=== PATIENT | female | born 1975 | race African-American/Black ===

== ENCOUNTER 2021-08-29 12:50 | Inpatient (IN) | payer OTHER ==
[~2021-08-29] VITALS: Ht 160 cm; Wt 59.1 kg
[2021-08-29] MEDS ORDERED: SODIUM CHLORIDE 0.9% 1,000 ML IV ONE (13:30)
[2021-08-29] MEDS ORDERED: LEVETIRACETAM 1000MG PREMIX 100 ML IV ONE (13:30)
[2021-08-29 14:00] LABS: BASOPHILS % 0.1 % (0.0-2.0); EOSINOPHILS % 0.4 % (0.0-5.0); HEMATOCRIT. 30.1 % (36.0-48.0); HEMOGLOBIN. 10.3 g/dL (12.0-16.0); LYMPHOCYTES % 10.8 % (20.0-50.0); MEAN CORPUSCULAR HEMOGLOBIN 27.7 pg (28.0-32.0); MEAN CORPUSCULAR VOLUME 80.9 fL (81.0-99.0); MEAN PLATELET VOLUME 5.9 fl (7.4-10.4); MONOCYTES % 3.6 % (2.0-8.0); NEUTROPHILS % 85.1 % (40.0-76.0); PLATELET 363 x1000/uL (130-400); RED BLOOD CELL COUNT 3.72 mill/uL (4.2-5.4); RED CELL DISTRIBUTION WIDTH 12.1 % (11.6-14.6)
[2021-08-29] MEDS ORDERED: MIDAZOLAM HCL 2 MG/2 ML VIAL IV ONE (14:00)
[2021-08-29 14:07] LABS: CHLORIDE 83 mEq/L (98-107)
[2021-08-29 14:11] LABS: ETHANOL BLOOD < 10 mg/dL
[2021-08-29] MEDS ORDERED: SODIUM CHLORIDE 3% 500ML IV SOLN IV ONE (14:30)
[2021-08-29] MEDS ORDERED: SODIUM CHLORIDE 3% 150 ML IV NR (14:45)
[2021-08-29 17:54] LABS: CHLORIDE 85 mEq/L (98-107)
[2021-08-29] MEDS ORDERED: HYDROCODONE/ACETAMINOPHEN 5/325MG TABLET PO PRN (19:00)
[2021-08-29] MEDS ORDERED: ACETAMINOPHEN 325MG TABLET PO PRN ×2 (19:00)
[2021-08-29] MEDS ORDERED: ONDANSETRON HCL 4MG/2ML INJ IV PRN (19:00)
[2021-08-29] MEDS ORDERED: NALOXONE HCL 0.4MG/ML VIAL IV PRN (19:15)
[2021-08-29] MEDS: ENOXAPARIN 40MG/0.4ML SYR SUBCUT SCH (20:05)
[2021-08-29 20:48] LABS: CHLORIDE 87 mEq/L (98-107)
[2021-08-29 20:49] LABS: CLARITY URINE CLEAR (CLEAR); COLOR URINE YELLOW (YELLOW); KETONES URINE 2+ (NEGATIVE); LEUKOCYTE ESTERASE URINE NEGATIVE (NEGATIVE); NITRITE URINE NEGATIVE (NEGATIVE); OCCULT BLOOD URINE NEGATIVE (NEGATIVE); PROTEIN URINE NEGATIVE (NEGATIVE); SPECIFIC GRAVITY URINE 1.009 (1.005-1.030); UROBILINOGEN URINE 0.2 E.U./dL (0.2-1.0)
[2021-08-29 21:32] LABS: *AMPHETAMINES SCREEN URINE NEGATIVE (NEGATIVE)
[2021-08-29 21:33] LABS: *BARBITURATES SCREEN URINE NEGATIVE (NEGATIVE); *COCAINE SCREEN URINE NEGATIVE (NEGATIVE); METHADONE URINE SCREEN NEGATIVE (NEGATIVE); OPIATES URINE SCREEN NEGATIVE (NEGATIVE); PHENCYCLIDINE URINE SCREEN NEGATIVE (NEGATIVE)
[2021-08-29 21:35] LABS: CANNABINOID URINE SCREEN NEGATIVE (NEGATIVE)
[2021-08-29 21:36] LABS: *BENZODIAZEPINES SCREEN URINE PRESUMTIVE POSITIVE (NEGATIVE)
[2021-08-30] VITALS (13 sets, daily range): BP systolic 87–134; BP diastolic 55–81
[2021-08-30 00:59] LABS: CHLORIDE 85 mEq/L (98-107)
[2021-08-30 02:20] LABS: CHLORIDE 85 mEq/L (98-107)
[2021-08-30] MEDS: LORAZEPAM 2MG/ML CPJ IV PRN (03:44)
[2021-08-30 05:34] LABS: CHLORIDE 84 mEq/L (98-107)
[2021-08-30 05:41] LABS: PHOSPHORUS 2.3 mg/dL (2.5-4.9)
[2021-08-30 06:12] LABS: BASOPHILS % 0.1 % (0.0-2.0); HEMATOCRIT. 32.1 % (36.0-48.0); HEMOGLOBIN. 10.9 g/dL (12.0-16.0); LYMPHOCYTES % 7.9 % (20.0-50.0); MEAN CORPUSCULAR HEMOGLOBIN 27.8 pg (28.0-32.0); MEAN CORPUSCULAR VOLUME 81.7 fL (81.0-99.0); MEAN PLATELET VOLUME 6.7 fl (7.4-10.4); MONOCYTES % 5.2 % (2.0-8.0); NEUTROPHILS % 86.8 % (40.0-76.0); PLATELET 448 x1000/uL (130-400); RED BLOOD CELL COUNT 3.93 mill/uL (4.2-5.4); RED CELL DISTRIBUTION WIDTH 12.4 % (11.6-14.6)
[2021-08-30] MEDS ORDERED: SODIUM CHL 0.9% + KCL 20MEQ/L 1,000 ML IV SCH (07:30)
[2021-08-30 09:34] LABS: CHLORIDE 89 mEq/L (98-107)
[2021-08-30 12:59] LABS: CHLORIDE 93 mEq/L (98-107)
[2021-08-30] MEDS ORDERED: POTASSIUM PHOS,M-BASIC-D-BASIC 20 MMOL in DEXT 5% WATER 243.3333 ML IV NR (15:30)
[2021-08-30] MEDS ORDERED: MAGNESIUM 2 G PREMIX 50 ML IV NR (16:00)
[2021-08-30 17:07] LABS: CHLORIDE 93 mEq/L (98-107)
[2021-08-30] MEDS ORDERED: KCL 20MEQ/100ML PREMIX 100 ML IV NR (21:00)
[2021-08-30] MEDS ORDERED: FOLIC ACID 1 MG, THIAMINE HCL 100 MG, MVI, ADULT NO.1 10 ML in DEXTROSE 5% WATER 1,000 ML IV NR (21:00)
[2021-08-30] MEDS: ENOXAPARIN 40MG/0.4ML SYR SUBCUT SCH (21:40)
[2021-08-30] MEDS ORDERED: DIPHENHYDRAMINE 25MG CAPSULE PO NR (22:00)
[2021-08-30 23:58] LABS: CHLORIDE 100 mEq/L (98-107)
[2021-08-31] VITALS (9 sets, daily range): BP systolic 87–119; BP diastolic 54–75
[2021-08-31] MEDS ORDERED: DEXT 5%/0.45% NACL 1000ML 1,000 ML IV SCH (00:30)
[2021-08-31 06:28] LABS: BASOPHILS % 0.5 % (0.0-2.0); EOSINOPHILS % 0.2 % (0.0-5.0); HEMATOCRIT. 32.9 % (36.0-48.0); HEMOGLOBIN. 11.3 g/dL (12.0-16.0); LYMPHOCYTES % 17.2 % (20.0-50.0); MEAN CORPUSCULAR HEMOGLOBIN 27.9 pg (28.0-32.0); MEAN CORPUSCULAR VOLUME 81.2 fL (81.0-99.0); MEAN PLATELET VOLUME 6.8 fl (7.4-10.4); NEUTROPHILS % 73.1 % (40.0-76.0); PLATELET 437 x1000/uL (130-400); RED BLOOD CELL COUNT 4.05 mill/uL (4.2-5.4)
[2021-08-31 06:48] LABS: CHLORIDE 99 mEq/L (98-107)
[2021-08-31 07:00] LABS: PHOSPHORUS 2.1 mg/dL (2.5-4.9)
[2021-08-31] MEDS ORDERED: KCL 20MEQ/100ML PREMIX 100 ML IV SCH ×2 (09:00→11:00)
[2021-08-31 09:47] LABS: FOLIC ACID (FOLATE) SERUM >20 ng/mL ng/mL (>5.38)
[2021-08-31 09:58] LABS: VITAMIN B12 SERUM 1004 pg/mL (211-911)
[2021-08-31] MEDS: LORAZEPAM 2MG/ML CPJ IV PRN (10:03)
[2021-08-31] MEDS ORDERED: POTASSIUM PHOS,M-BASIC-D-BASIC 20 MMOL in DEXT 5% WATER 243.3333 ML IV SCH (13:00)
[2021-08-31] MEDS: ENOXAPARIN 40MG/0.4ML SYR SUBCUT SCH (19:30)
[2021-09-01 03:41] VITALS: BP 118/77
[2021-09-01 06:43] LABS: BASOPHILS % 0.3 % (0.0-2.0); EOSINOPHILS % 1.1 % (0.0-5.0); HEMATOCRIT. 30.3 % (36.0-48.0); HEMOGLOBIN. 10.3 g/dL (12.0-16.0); LYMPHOCYTES % 19.1 % (20.0-50.0); MEAN CORPUSCULAR HEMOGLOBIN 27.8 pg (28.0-32.0); MEAN CORPUSCULAR VOLUME 81.7 fL (81.0-99.0); MEAN PLATELET VOLUME 6.5 fl (7.4-10.4); MONOCYTES % 7.3 % (2.0-8.0); NEUTROPHILS % 72.2 % (40.0-76.0); PLATELET 415 x1000/uL (130-400); RED BLOOD CELL COUNT 3.71 mill/uL (4.2-5.4); RED CELL DISTRIBUTION WIDTH 12.9 % (11.6-14.6)
[2021-09-01 07:00] LABS: CHLORIDE 101 mEq/L (98-107)
[2021-09-01 07:16] LABS: PHOSPHORUS 2.6 mg/dL (2.5-4.9)
[2021-09-01 08:00] VITALS: BP 91/58
[2021-09-01 08:09] LABS: CREATINE KINASE 10124 IU/L (26-192)
[2021-09-01 09:07] LABS: ALBUMIN 3.3 g/dL (2.9-4.4); ALPHA-1-GLOBULIN 0.3 g/dL (0.0-0.4); ALPHA-2-GLOBULIN 0.9 g/dL (0.4-1.0); ANTI-DNA DOUBLE STRANDED QUANT 1 IU/mL (0-9); BETA GLOBULIN 0.9 g/dL (0.7-1.3); GAMMA GLOBULINS 1.2 g/dL (0.4-1.8); GLOBULIN TOTAL 3.4 g/dL (2.2-3.9); IMMUNOGLOBULIN A 205 mg/dL (87-352); IMMUNOGLOBULIN G 1070 mg/dL (586-1602); IMMUNOGLOBULIN M 55 mg/dL (26-217); M-SPIKE Not Observed g/dL (Not Observed); TOTAL PROTEIN SERUM 6.7 g/dL (6.0-8.5)
[2021-09-01 12:00] VITALS: BP 96/64
[2021-09-01 16:00] VITALS: BP 100/56
[2021-09-01] MEDS: ENOXAPARIN 40MG/0.4ML SYR SUBCUT SCH (19:33)
[2021-09-01 20:00] VITALS: BP 108/65
[2021-09-02] VITALS: BP 117/83
[2021-09-02 03:47] VITALS: BP 105/67
[2021-09-02 05:54] LABS: CHLORIDE 103 mEq/L (98-107)
[2021-09-02 06:20] LABS: BASOPHILS % 0.5 % (0.0-2.0); EOSINOPHILS % 1.5 % (0.0-5.0); HEMOGLOBIN. 10.4 g/dL (12.0-16.0); MEAN CORPUSCULAR VOLUME 81.2 fL (81.0-99.0); MEAN PLATELET VOLUME 6.8 fl (7.4-10.4); MONOCYTES % 6.9 % (2.0-8.0); NEUTROPHILS % 69.1 % (40.0-76.0); PLATELET 438 x1000/uL (130-400); RED BLOOD CELL COUNT 3.69 mill/uL (4.2-5.4); RED CELL DISTRIBUTION WIDTH 12.7 % (11.6-14.6)
[2021-09-02 07:12] LABS: CREATINE KINASE 6932 IU/L (26-192)
[2021-09-02 07:55] VITALS: BP 92/61
[2021-09-02 12:00] VITALS: BP 102/65
[2021-09-02 13:00] VITALS: BP 98/67
[2021-09-04 05:28] LABS: ANA IFA Positive (.)
== END 2021-09-02 14:05 | disposition home or self-care (01) | DRG 52 ==
LOC: ER 12:50 → EDBEDREQSVC 15:41 → 5EST 17:01 → EDBEDREQ 17:07 → EDBEDREQSVC 17:07 → EDBEDREQTM 17:07 → EDBEDREQSVC 18:39 → SUPCPDRO 18:49 → ENRESERV 23:50
PROVIDERS: ADMIT Hospitalist; ATTEND Hospitalist
PROC: 4A10X4Z Monitoring of Central Nervous Electrical Activity, External Approach (ICD-10-PCS; principal; 2021-08-31)
DX: G93.41 Metabolic encephalopathy (principal); R65.11 Systemic inflammatory response syndrome (SIRS) of non-infectious origin with acute organ dysfunction; M62.82 Rhabdomyolysis; E22.2 Syndrome of inappropriate secretion of antidiuretic hormone; E83.39 Other disorders of phosphorus metabolism; N13.30 Unspecified hydronephrosis; K74.3 Primary biliary cirrhosis; R55 Syncope and collapse; R56.9 Unspecified convulsions; D64.9 Anemia, unspecified; E87.6 Hypokalemia; E83.42 Hypomagnesemia; F17.200 Nicotine dependence, unspecified, uncomplicated; R74.8 Abnormal levels of other serum enzymes
CPT/HCPCS: 36415; 70551; 76705; 76770; 80048; 80053; 80305; 80320; 81003; 82140; 82533; 82550; 82607; 82746; 82784; 82962; 83516; 83605; 83735; 83930; 84100; 84155; 84165; 84443; 85025; 85651; 86140; 86160; 86225; 86256; 86334; 92610; 93005; 95816; 97162; 97166; 97535; 99291; C1893; J1650; J1953; J2060; J2250; J3411; J3475; J3480; J3490; J7030; J7060; J7070; Q0163; G0480